=== PATIENT | female | born 1990 | race Caucasian/White ===

== ENCOUNTER 2016-11-04 11:39 | Emergency (ER) | payer OTHER ==
[2016-11-04 11:56] VITALS: BP 124/53; TEMP 103; BMI 32.8
[2016-11-04] MEDS ORDERED: IBUPROFEN 400 MG TABLET (FP) PO ONE ×2 (12:47→12:48)
[2016-11-04] MEDS ORDERED: PENICILLIN G BENZATHINE 1,200,000 UNIT/2 ML PFS IM ONE (12:52)
--- NOTE | 2016-11-04 12:55 | PDOC ---
History of Present Illness - General Chief Complaint: Sore Throat Stated Complaint: FEVER Time Seen by Provider: 11/04/16 12:27 History Source: Patient - History of Present Illness Timing/Duration: reports: yesterday Associated Symptoms: reports: fever/chills, sore throat. denies: cough, earache , facial pain, headache, muscle aches, nasal congestion, nasal drainage Past History - Past Medical History Allergies/Adverse Reactions: Allergies Allergy/AdvReac Type Severity Reaction Status Date / Time No Known Drug Allergies Allergy Verified 11/04/16 11:56 peanuts Allergy Severe Hives Uncoded 11/04/16 11:56 Home Medications: Ambulatory Orders Ibuprofen [Motrin -] 800 mg PO Q6H #30 tablet 11/04/16 Other medical history: PATIENT DENIES MEDICAL HISTORY - Psycho/Social/Smoking Cessation Hx Anxiety: No Suicidal Ideation: No Smoking Status: No Smoking History: Never smoked Have you smoked in the past 12 months: No Number of Cigarettes Smoked Daily: 0 Hx Alcohol Use: Yes (occasionallyt) Drug/Substance Use Hx: No Substance Use Type: None Respiratory Specific PMHX - Complaint Specific PMHX Angina: No Review of Systems - Review of Systems Constitutional: Yes: Fever HEENTM: Yes: Throat Pain. No: Ear Pain Respiratory: No: Cough *Physical Exam - Vital Signs Last Vital Signs Temp Pulse Resp BP Pulse Ox 103.0 F H 115 H 124/53 98 11/04/16 11:40 11/04/16 11:40 11/04/16 11:40 11/04/16 11:40 - Physical Exam General Appearance: Yes: Appropriately Dressed. 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 negative: Scleral Icterus (R), Scleral Icterus (L), Tonsillar Exudate Neck: positive: Supple. 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 States symptoms similar to prior strep. 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 Will treat for presumed strep. Antipyretic in ED and reassess 11/04/16 14:20 Strep +. Pt s/p bicillin. Temp only reduced to 102.8 w/ HR 107 after motrin and tylenol though pt reports feeling significantly better at this time. Will dc w/ instructions to administer antipyretic every 6 hours as needed and maintain adequate hydration. Reasons to return discussed with patient *DC/Admit/Observation/Transfer Diagnosis at time of Disposition: Strep pharyngitis - Discharge Dispostion Disposition: HOME Condition at time of disposition: Improved - Prescriptions Prescriptions: Ibuprofen [Motrin -] 800 mg PO Q6H #30 tablet - Patient Instructions Printed Discharge Instructions: Strep Throat Additional Instructions: Maintain adequate hydration and take Motrin every 6 hours as needed for pain and/or fever. Return to ER for worsening of symptoms - Post Discharge Activity Work/School Note: Back to Work
[2016-11-04] MEDS ORDERED: PENICILLIN G BENZATHINE 2,400,000 UNIT/4 ML PFS ONE (13:04)
[2016-11-04 13:40] VITALS: PULSE 107
== END 2016-11-04 14:34 | disposition home or self-care (01) ==
LOC: JERFT 11:39
DX: J02.0 Streptococcal pharyngitis (principal)
CPT/HCPCS: 87070; 87430; 96372; 99281-25

== ENCOUNTER 2018-02-23 22:45 | Emergency (ER) | payer SELFPAY ==
[2018-02-23 23:02] VITALS: BP 129/81; PULSE 77; TEMP 98.5; BMI 34.0
--- NOTE | 2018-02-23 23:20 | PDOC ---
History of Present Illness - General Chief Complaint: Pain Stated Complaint: ABD PAIN Time Seen by Provider: 02/23/18 23:06 History Source: Patient - History of Present Illness Initial Comments: 02/23/18 23:24 The patient is a 27 year old female with no reported PMH who presents with a 3 day h/o abdominal pain. Pain is epigastric, "sharp" radiates to her L back and exacerbated by eating. Denies any fevers/chills, dysuria/hematuria. Endorses constipation, last BM yesterday. LMP was February 13. States she is not sexually active and denies possibility of . Notes previous h/o similar pain a few weeks previous that wasn't as severe and resolved with rest. Patient notes that she follows a strict no carb diet and drinks apple cider vinegar daily. 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 Patient denies chest pain, shortness of breath, sore throat, cough, numbness, dizziness. NKDA Allergy: peanuts Surgical: denies Social: denies nicotine, social alcohol (3-4 drinks on weekends), denies recreational drugs PMD: Dr. Tushar Aguilera M.D. Past History - Past Medical History Allergies/Adverse Reactions: Allergies Allergy/AdvReac Type Severity Reaction Status Date / Time No Known Drug Allergies Allergy Verified 02/23/18 22:55 peanuts Allergy Severe Hives Uncoded 11/04/16 11:56 Home Medications: Ambulatory Orders Ibuprofen [Motrin -] 800 mg PO Q6H #30 tablet 11/04/16 COPD: No Other medical history: Pt denies - Suicide/Smoking/Psychosocial Hx Smoking Status: No Smoking History: Never smoked Have you smoked in the past 12 months: No Number of Cigarettes Smoked Daily: 0 Information on smoking cessation initiated: No Hx Alcohol Use: No Drug/Substance Use Hx: No Substance Use Type: None Review of Systems - Review of Systems Constitutional: No: Chills, Fever HEENTM: No: Blurred Vision, Double Vision Respiratory: No: Cough, Shortness of Breath Cardiac (ROS): No: Chest Pain, Lightheadedness, Palpitations ABD/GI: Yes: Constipated, Vomiting, Abdominal cramping. No: Diarrhea, Nausea : No: Burning, Dysuria *Physical Exam - Vital Signs Last Vital Signs Temp Pulse Resp BP Pulse Ox 98.5 F 77 18 129/81 98 02/23/18 22:55 02/23/18 22:55 02/23/18 22:55 02/23/18 22:55 02/23/18 22:55 - Physical Exam General Appearance: Yes: Nourished, Obese HEENT: positive: Normal Voice, Hearing Grossly Normal Neck: positive: Trachea midline, Supple Respiratory/Chest: positive: Lungs Clear, Normal Breath Sounds. negative: Labored Respiration, Rapid RR, Crackles, Wheezing Cardiovascular: positive: S1, S2. negative: Edema, JVD Vascular Pulses: Dorsalis-Pedis (R): 2+, Doralis-Pedis (L): 2+ Gastrointestinal/Abdominal: positive: Normal Bowel Sounds, Soft, Tenderness ( epigastric). 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 Afebrile w/other VS unremarkable. Mild TTP in epigastrium, (+) Maravilla's sign, equivocal CVA tenderness. Frontal diagnosis: cholecystitis, viral gastritis, UA/UTI/pyelonephritis, less likely GERD, low clinical suspicion for abdominal pain as anginal equivalent. Will obtain basic labs, lipase, lactic acid, UA/UC, Upreg, as well as GB ultrasound. IV Fluids + Maalox. Reassess. Patient signed out to Dr. Bhatti (Resident) and Dr. Dhillon (Attending) *DC/Admit/Observation/Transfer Diagnosis at time of Disposition: Epigastric abdominal pain - Discharge Dispostion Condition at time of disposition: Stable - Referrals Referrals: Tushar Aguilera MD [Primary Care Provider] - - Patient Instructions Printed Discharge Instructions: DI for Abdominal Pain-Adult Additional Instructions: Please return to the emergency department with any new or worsening symptoms or concerns. Please follow up with your primary care physician within 72 hours. - Post Discharge Activity
[2018-02-23] MEDS ORDERED: MAG HYDROX/AL HYDROX/SIMETH -MYLANTA- ORAL SUSPENSION PO ONE (23:21)
[2018-02-23] MEDS ORDERED: SODIUM CHLORIDE 0.9% 500 ML INFUS.BAG IV ONE (23:21)
--- NOTE | 2018-02-24 00:02 | PDOC ---
Attending Attestation - Resident Resident Name: Mariaa Toica - ED Attending Attestation I have performed the following: I have examined & evaluated the patient, The case was reviewed & discussed with the resident, I agree w/resident's findings & plan, Exceptions are as noted - HPI HPI: 02/23/18 23:56 27 yo female p/w epigastric pain and some nausea -the pain radiating to her upper back -she states she has started drinking apple cider vinegar for weight control -she denies any abdominal surgeries - Physicial Exam PE: 02/24/18 00:02 27 yo female with epigastric pain head ncat neck supple cvs [id number] lungs cta b/l abd soft,mild epigastric tenderness to palpation,no rebound,no lower abdominal tenderness skin warm and dry,no rashes no cva tenderness extremities from,no deformity,no tenderness neuro axox3,ambulatory,no gross focal neuro deficits psych appropriate 02/24/18 00:16 - Medical Decision Making 02/24/18 00:18 differential includes PUD,cholelithiasis, GERD GB US,lipase,comp,preg test 02/24/18 01:42 abdominal US: no gallstones,normal CBD,there was some sludge but otherwise it was a negative study negative preg test US negative cbc no leukocytosis and no anemia
--- NOTE | 2018-02-24 00:09 | PDOC ---
*Physical Exam - Vital Signs Last Vital Signs Temp Pulse Resp BP Pulse Ox 98.5 F 77 18 129/81 98 02/23/18 22:55 02/23/18 22:55 02/23/18 22:55 02/23/18 22:55 02/23/18 22:55 - Physical Exam Comments: 02/24/18 00:03 GENERAL: Awake, alert, and fully oriented, in no acute distress HEAD: No signs of trauma, normocephalic, atraumatic EYES: PERRLA, EOMI, sclera anicteric, conjunctiva clear ENT: Hearing grossly normal, nares patent, oropharynx clear without exudates. Moist mucosa NECK: Normal ROM, supple, no lymphadenopathy, JVD, or masses LUNGS: No distress, speaks full sentences, clear to auscultation bilaterally HEART: Regular rate and rhythm, normal S1 and S2, no murmurs, rubs or gallops, peripheral pulses normal and equal bilaterally. ABDOMEN: + Epigastric ttp. Soft, normoactive bowel sounds. No guarding, no rebound. No masses. Neg CVA ttp. EXTREMITIES : Normal inspection, Normal range of motion, no edema. No clubbing or cyanosis. SKIN: Warm, Dry, normal turgor, no rashes or lesions noted ED Treatment Course - LABORATORY CBC & Chemistry Diagram: 02/24/18 00:20 02/24/18 00:20 Medical Decision Making - Medical Decision Making 02/24/18 00:[address] hand off [address] Dr. To. 27 yo F with no significant pmh who p/w epigastria abdominal pain. VSS, AF, + epigatsirc ttp. Likely gastritis, vs. biliary dz. Low suspicion pancreatitis, colitis, diverticulitis, nephrolithiasis. Pending RUQ U/S, labs, UA, HCG. ED Course: 02/24/18 01:37 RUQ U/S: Biliary sludge with absent evidence of cholecystitis CBC: Unremarkable Patient stable for d/c with return precautions. Advised to f/u with PMD 02/24/18 01:39 UA: Neg 02/24/18 01:39 HCG: Neg *DC/Admit/Observation/Transfer Diagnosis at time of Disposition: Epigastric abdominal pain - Discharge Dispostion Condition at time of disposition: Stable - Referrals Referrals: Tushar Aguilera MD [Primary Care Provider] - - Patient Instructions Printed Discharge Instructions: DI for Abdominal Pain-Adult Additional Instructions: Please return to the emergency department with any new or worsening symptoms or concerns. Please follow up with your primary care physician within 72 hours. - Post Discharge Activity - Attestations Physician Attestion: 02/24/18 00:04 I attest to the information provided in this note.
[2018-02-24] MEDS ORDERED: MAG HYDROX/AL HYDROX/SIMETH 30 ML UNIT-DOSE CUP ONE (00:10)
[2018-02-24 00:47] LABS: URINE APPEARANCE CLOUDY; URINE BILIRUBIN NEGATIVE (<2.0 mg/dL); URINE COLOR YELLOW; URINE GLUCOSE (UA) NEGATIVE (NEGATIVE); URINE KETONE 1+ (NEGATIVE); URINE LEUK ESTERASE NEGATIVE (NEGATIVE); URINE NITRITE NEGATIVE (NEGATIVE); URINE PROTEIN NEGATIVE (NEGATIVE); URINE UROBILINOGEN NEGATIVE mg/dL (0.2-1.0)
[2018-02-24 00:49] LABS: BASO % 0.5 % (0-2.0); EOS % 0.9 % (0-4.5); HEMATOCRIT 36.2 % (32.4-45.2); HEMOGLOBIN 11.9 GM/dL (10.7-15.3); LYMPH % 25.3 % (8-40); MCH 28.9 pg (25.7-33.7); MCHC 32.9 g/dl (32.0-36.0); MEAN CELL VOLUME 87.9 fl (80-96); MEAN PLT VOLUME 9.7 fl (7.5-11.1); MONO % 5.4 % (3.8-10.2); NEUT % 67.9 % (42.8-82.8); PLATELET COUNT 223 K/MM3 (134-434); RBC 4.12 M/mm3 (3.60-5.2); RDW 12.8 % (11.6-15.6); WHITE BLOOD COUNT 8.6 K/mm3 (4.0-10.0)
[2018-02-24 03:04] LABS: BLOOD UREA NITROGEN 16 mg/dL (7-18); CREATININE 0.6 mg/dL (0.55-1.3); GLUCOSE,RANDOM 105 mg/dL (74-106)
[2018-02-24 03:05] LABS: ALBUMIN 3.4 g/dl (3.4-5.0); ALK PHOS 50 U/L (45-117); ANION GAP 6 MMOL/L (8-16); BILIRUBIN,TOTAL 0.3 mg/dL (0.2-1); CALCIUM 8.4 mg/dL (8.5-10.1); CHLORIDE 108 mmol/L (98-107); CO2 28 mmol/L (21-32); LIPASE 123 U/L (73-393); SGOT/AST 42 U/L (15-37); SGPT/ALT 70 U/L (13-61); SODIUM 142 mmol/L (136-145)
[2018-02-24] MEDS ORDERED: RANITIDINE HCL 150 MG TABLET (FP) PO ONE (03:51)
[2018-02-24] MEDS ORDERED: RANITIDINE HCL 150 MG TABLET (FP) ONE (03:53)
[2018-02-24] MEDS ORDERED: SUCRALFATE 1 GM TABLET (FP) ONE (03:54)
== END 2018-02-24 03:08 | disposition home or self-care (01) ==
LOC: JER 22:45
DX: R10.13 Epigastric pain (principal)
CPT/HCPCS: 36415; 76705-TC; 80053; 81003; 83605; 83690; 84703; 85025; 87086; 99283-25

== ENCOUNTER 2018-03-03 23:35 | Emergency (ER) | payer SELFPAY ==
[2018-03-03 23:41] VITALS: BP 138/67; PULSE 74; TEMP 98.1; BMI 34.0
--- NOTE | 2018-03-04 00:14 | PDOC ---
History of Present Illness - General History Source: Patient, Old Records Exam Limitations: No Limitations - History of Present Illness Initial Comments: 03/04/18 00:26 The patient is a 27 year old female, with no significant past medical history, who presents to the ED complaining of abdominal pain, nausea and vomiting. She describes her abdominal pain as localized in the epigastric region, ranging from mild to moderate, without radiation or modifying factors. She notes that she has a acid reflux sensation in her chest and stomach. She notes that she has been taking anti-acids without relieve of her symptoms. She reports that she was in the ED on 02/23/2018 for the same symptoms, an ultrasound was negative and she was discharged home. The patient denies chest pain, shortness of breath, headache and dizziness. Denies fever, chills, diarrhea or constipation. Denies dysuria, frequency, urgency and hematuria. LMP: Current Allergies: None Past surgical history: None reported Social History: Alcohol use. No tobacco or drug use reported <Oh Del Toro - Last Filed: 03/04/18 00:26> <Nathaly Carl - Last Filed: 03/04/18 01:57> - General Chief Complaint: Pain Stated Complaint: ABDOMINAL PAIN Time Seen by Provider: 03/04/18 00:13 Past History <Oh Del Toro - Last Filed: 03/04/18 00:26> - Past Medical History COPD: No - Suicide/Smoking/Psychosocial Hx Smoking Status: No Smoking History: Never smoked Have you smoked in the past 12 months: No Number of Cigarettes Smoked Daily: 0 Hx Alcohol Use: Yes (occasionallyt) Drug/Substance Use Hx: No Substance Use Type: None <Nathaly Carl - Last Filed: 03/04/18 01:57> - Past Medical History Allergies/Adverse Reactions: Allergies Allergy/AdvReac Type Severity Reaction Status Date / Time No Known Drug Allergies Allergy Verified 03/03/18 23:41 peanuts Allergy Severe Hives Uncoded 03/03/18 23:41 Home Medications: Ambulatory Orders Ibuprofen [Motrin -] 800 mg PO Q6H #30 tablet 11/04/16 Famotidine [Pepcid -] 20 mg PO DAILY #30 tablet 02/24/18 Mag Hydrox/Aluminum Hyd/Simeth [Maalox Advanced Suspension] 30 ml PO DAILY PRN # 355 oral.susp 03/04/18 Review of Systems - Review of Systems Able to Perform ROS?: Yes Comments:: 03/04/18 00:27 GENERAL/CONSTITUTIONAL: No fever or chills. No weakness. HEAD, EYES, EARS, NOSE AND THROAT: No change in vision. No ear pain or discharge. No sore throat. GASTROINTESTINAL: (+) Abdominal pain, nausea and vomiting. No diarrhea or constipation. GENITOURINARY: No dysuria, frequency, or change in urination. CARDIOVASCULAR: No chest pain or shortness of breath. RESPIRATORY: No cough, wheezing, or hemoptysis. MUSCULOSKELETAL: No joint or muscle swelling or pain. No neck or back pain. SKIN: No rash NEUROLOGIC: No headache, vertigo, loss of consciousness, or change in strength/ sensation. ENDOCRINE: No increased thirst. No abnormal weight change. HEMATOLOGIC/LYMPHATIC: No anemia, easy bleeding, or history of blood clots. ALLERGIC/IMMUNOLOGIC: No hives or skin allergy. <Oh Del Toro - Last Filed: 03/04/18 00:26> *Physical Exam - Vital Signs Last Vital Signs Temp Pulse Resp BP Pulse Ox 98.1 F 74 18 138/67 99 03/03/18 23:39 03/03/18 23:39 03/03/18 23:39 03/03/18 23:39 03/03/18 23:39 - Physical Exam Comments: 03/04/18 00:27 Constitutional: Awake, alert, oriented. No acute distress. Head: Normocephalic. Atraumatic Eyes: PERRL. EOMI. Conjunctivae are not pale. ENT: Mucous membranes are moist and intact. Posterior pharynx without exudates or erythema. Uvula midline. Neck: Supple. Full ROM. No lymphadenopathy. Cardiovascular: Regular rate. Regular rhythm. S1, S2 regular. Distal pulses are 2+ and symmetric. Pulmonary/Chest: No evidence of respiratory distress. Clear to auscultation bilaterally No wheezing, rales or rhonchi. Abdominal: (+) Epigastric tenderness. Soft and non-distended. No rebound, guarding or rigidity. No organomegaly. No palpable masses. Good bowel sounds. Back: No CVA tenderness. Musculoskeletal: No edema. No cyanosis. No clubbing. Full range of motion in all extremities. Nocalf tenderness. Radial/pedal pulses are intact and 2+ bilaterally Skin: Skin is warm and dry. No petechiae. No purpura. Neurological: Alert and oriented to person, place, and time. Cranial nerves II -XII are grossly intact. Normal speech. Strength is grossly symmetric. No sensory deficits. Psychiatric: Good eye contact. Normal interaction, affect and behavior. <Oh Del Toro - Last Filed: 03/04/18 00:26> - Vital Signs Last Vital Signs Temp Pulse Resp BP Pulse Ox 98.1 F 74 18 138/67 99 03/03/18 23:39 03/03/18 23:39 03/03/18 23:39 03/03/18 23:39 03/03/18 23:39 <Nathaly Carl - Last Filed: 03/04/18 01:57> ED Treatment Course - LABORATORY CBC & Chemistry Diagram: 03/04/18 00:28 03/04/18 00:28 <Nathaly Carl - Last Filed: 03/04/18 01:57> Medical Decision Making - Medical Decision Making 03/04/18 00:23 a/p: 27yo female with epigastric pain and 1 episode of nbnb vomiting -seen in ED 1 week prior and given pepcid -RUQ u/s showed biliary sludge, no stones or acute azra -labs at the time showed mildly elevated LFT -taking pepcid without relief of the pain -pt with epigastric pain that radiates mildly to the back -will repeat labs -will medicate and monitor -suspect gastritis/pud -no acute azra on prior ultrasound, no stones 03/04/18 01:36 pt feeling much better no abd pain however, elevated LFT to ALT of 400 will repeat RUQ ultrasound - last ultrasound showed biliary sludge 03/04/18 01:56 repeat RUQ u/s negative for acute azra biliary sludge without other acute findings normal liver discussed ultrasound imaging results with the patient. discussed labs and elevated LFT discussed need to follow up with Gi answered all quesitons pt is stable for d/c to home <Nathaly Carl - Last Filed: 03/04/18 01:57> *DC/Admit/Observation/Transfer - Attestations Scribe Attestion: 03/04/18 00:27 Documentation prepared by Oh Del Toro, acting as medical administrative technician for Nathaly Carl DO <Oh Del Toro - Last Filed: 03/04/18 00:26> - Discharge Dispostion Decision to Admit order: No - Attestations Physician Attestion: 03/04/18 01:41 I, Dr. Nathaly Carl, DO, attest that this document has been prepared under my direction and personally reviewed by me in its entirety. I further attest, that it accurately reflects all work, treatment, procedures and medical decision -making performed by me. <Nathaly Carl - Last Filed: 03/04/18 01:57> Diagnosis at time of Disposition: Epigastric abdominal pain - Discharge Dispostion Disposition: HOME Condition at time of disposition: Stable - Prescriptions Prescriptions: Mag Hydrox/Aluminum Hyd/Simeth [Maalox Advanced Suspension] 30 ml PO DAILY PRN # 355 oral.susp PRN Reason: Peptic Ulcer - Referrals Referrals: Tushar Aguilera MD [Primary Care Provider] - Smith Schroeder MD [Staff Physician] - - Patient Instructions Printed Discharge Instructions: DI for Epigastric Pain Additional Instructions: Please take all medications as prescribed. Please make an appointment to see the mineral wool insulation supervisor in the next 2-3 days. Please return to the ED with any further concerns or complaints. - Post Discharge Activity Forms/Work/School Notes: Back to Work
[2018-03-04] MEDS ORDERED: LIDOCAINE VISCOUS 2% ORAL/TOP 20 ML UNIT-DOSE CUP MM ONE (00:22)
[2018-03-04] MEDS ORDERED: ONDANSETRON *ODT* 4 MG TABLET SL ONE (00:22)
[2018-03-04] MEDS ORDERED: MAG HYDROX/AL HYDROX/SIMETH 30 ML UNIT-DOSE CUP PO ONE (00:22)
[2018-03-04] MEDS ORDERED: ONDANSETRON *ODT* 4 MG TABLET ONE (00:33)
[2018-03-04] MEDS ORDERED: LIDOCAINE VISCOUS 2% ORAL/TOP 20 ML UNIT-DOSE CUP ONE (00:33)
[2018-03-04] MEDS ORDERED: MAG HYDROX/AL HYDROX/SIMETH 30 ML UNIT-DOSE CUP ONE (00:33)
[2018-03-04 00:58] LABS: BASO % 0.4 % (0-2.0); EOS % 0.6 % (0-4.5); HEMATOCRIT 35.8 % (32.4-45.2); HEMOGLOBIN 11.8 GM/dL (10.7-15.3); LYMPH % 18.6 % (8-40); MCH 28.8 pg (25.7-33.7); MCHC 32.9 g/dl (32.0-36.0); MEAN CELL VOLUME 87.6 fl (80-96); MEAN PLT VOLUME 9.7 fl (7.5-11.1); MONO % 4.6 % (3.8-10.2); NEUT % 75.8 % (42.8-82.8); PLATELET COUNT 210 K/MM3 (134-434); RBC 4.09 M/mm3 (3.60-5.2); RDW 12.9 % (11.6-15.6); WHITE BLOOD COUNT 8.3 K/mm3 (4.0-10.0)
[2018-03-04 01:24] LABS: ALBUMIN 3.7 g/dl (3.4-5.0); ALK PHOS 63 U/L (45-117); ANION GAP 8 MMOL/L (8-16); BILIRUBIN,TOTAL 0.3 mg/dL (0.2-1); BLOOD UREA NITROGEN 16 mg/dL (7-18); CALCIUM 8.9 mg/dL (8.5-10.1); CHLORIDE 108 mmol/L (98-107); CO2 24 mmol/L (21-32); CREATININE 0.7 mg/dL (0.55-1.3); GLUCOSE,RANDOM 113 mg/dL (74-106); LIPASE 156 U/L (73-393); MAGNESIUM 2.2 mg/dL (1.8-2.4); POTASSIUM 4.1 mmol/L (3.5-5.1); SGOT/AST 134 U/L (15-37); SGPT/ALT 403 U/L (13-61); SODIUM 140 mmol/L (136-145); TOT PROT 7.6 g/dl (6.4-8.2)
== END 2018-03-04 02:01 | disposition home or self-care (01) ==
LOC: JER 23:35
DX: R10.13 Epigastric pain (principal)
CPT/HCPCS: 36415; 76705-TC; 80053; 83690; 83735; 84703; 85025; 99284-25; Q0162

== ENCOUNTER 2018-03-07 05:49 | Inpatient (IN) | payer OTHER ==
[2018-03-07 07:06] LABS: BASO % 0.4 % (0-2.0); HEMATOCRIT 37.8 % (32.4-45.2); HEMOGLOBIN 12.5 GM/dL (10.7-15.3); LYMPH % 29.3 % (8-40); MCH 29.2 pg (25.7-33.7); MCHC 33.2 g/dl (32.0-36.0); MEAN CELL VOLUME 88.1 fl (80-96); MEAN PLT VOLUME 9.9 fl (7.5-11.1); MONO % 6.7 % (3.8-10.2); NEUT % 62.6 % (42.8-82.8); PLATELET COUNT 212 K/MM3 (134-434); RBC 4.29 M/mm3 (3.60-5.2); RDW 13.1 % (11.6-15.6); WHITE BLOOD COUNT 7.6 K/mm3 (4.0-10.0)
[2018-03-07 07:15] LABS: URINE APPEARANCE SLCLOUDY; URINE BILIRUBIN NEGATIVE (<2.0 mg/dL); URINE COLOR DKYELLOW; URINE GLUCOSE (UA) NEGATIVE (NEGATIVE); URINE KETONE TRACE (NEGATIVE); URINE LEUK ESTERASE NEGATIVE (NEGATIVE); URINE NITRITE NEGATIVE (NEGATIVE); URINE PROTEIN 1+ (NEGATIVE); URINE UROBILINOGEN NEGATIVE mg/dL (0.2-1.0)
[2018-03-07 07:17] LABS: HCG,QUALITATIVE URINE Negative
[2018-03-07 07:22] LABS: ALBUMIN 3.9 g/dl (3.4-5.0); ALK PHOS 66 U/L (45-117); ANION GAP 7 MMOL/L (8-16); BILIRUBIN,TOTAL 0.3 mg/dL (0.2-1); BLOOD UREA NITROGEN 16 mg/dL (7-18); CALCIUM 8.8 mg/dL (8.5-10.1); CHLORIDE 105 mmol/L (98-107); CO2 27 mmol/L (21-32); CREATININE 0.7 mg/dL (0.55-1.3); GLUCOSE,RANDOM 98 mg/dL (74-106); POTASSIUM 4.1 mmol/L (3.5-5.1); SGOT/AST 167 U/L (15-37); SGPT/ALT 541 U/L (13-61); SODIUM 140 mmol/L (136-145)
[2018-03-07 07:23] LABS: EPI CELLS MODERATE /HPF (FEW); URINE MUCUS MODERATE
--- NOTE | 2018-03-07 07:31 | PDOC ---
History of Present Illness - General Chief Complaint: Pain Stated Complaint: VAGINAL BLEEDING/CRAMPS Time Seen by Provider: 03/07/18 07:13 History Source: Patient Exam Limitations: No Limitations - History of Present Illness Initial Comments: 03/07/18 07:31 27 year old woman with no past medical who presents with RUQ mildly radiating to the back. The patient reports 1 episode of emesis and loose stool this AM. The patient reports that the pain worsens at night. This AM the patient was awakened by the abdominal pain and took Mylanta without relief. The patient has been seen in this ED multiple times this month and had prior abdominal US done that showed biliary sludge but no gallstones. The patient had a follow up appointment in 3 days. She had called them several days ago in concern over her abdominal pain, and they recommended taking Nexium. She took Nexium for 2 days without any improvment of the pain. She also notes that from Mar 02 - she had vaginal spotting. She on OCPs and has regular periods. Her LNMP was Feb 26- . She denies pelvic pain/pressure. She denies chest pain, shortness of breath , constipation or history of STDs. She has no other complaints at bedside. PMHX: as in HPI Meds: see below Allergies: peanuts Tob:none Etoh: none Rec drugs: none PCP: Willy Past History - Past Medical History Allergies/Adverse Reactions: Allergies Allergy/AdvReac Type Severity Reaction Status Date / Time peanut Allergy Verified 03/07/18 07:42 peanuts Allergy Severe Hives Uncoded 03/07/18 06:29 Home Medications: Ambulatory Orders Famotidine [Pepcid -] 20 mg PO DAILY #30 tablet 02/24/18 Mag Hydrox/Aluminum Hyd/Simeth [Maalox Advanced Suspension] 30 ml PO DAILY PRN # 355 oral.susp 03/04/18 oxyCODONE HCL [Roxicodone -] 5 mg PO Q4H PRN #30 tablet MDD 6 03/09/18 COPD: No CHF: No Other medical history: Pt denies - Suicide/Smoking/Psychosocial Hx Smoking Status: No Smoking History: Never smoked Have you smoked in the past 12 months: No Number of Cigarettes Smoked Daily: 0 Information on smoking cessation initiated: No Hx Alcohol Use: No Drug/Substance Use Hx: No Substance Use Type: None Review of Systems - Review of Systems Able to Perform ROS?: Yes Is the patient limited Ukrainian proficient: No Constitutional: No: Chills, Diaphoresis, Fever HEENTM: No: Blurred Vision, Tinnitus Respiratory: No: Cough, Orthopnea, Shortness of Breath Cardiac (ROS): No: Chest Pain, Palpitations, Syncope ABD/GI: Yes: See HPI, Diarrhea, Nausea, Vomiting. No: Constipated : No: Burning, Dysuria, Hematuria Neurological: No: Headache, Numbness, Tingling *Physical Exam - Vital Signs Last Vital Signs Temp Pulse Resp BP Pulse Ox 98.9 F 74 20 142/91 99 03/07/18 06:11 03/07/18 06:11 03/07/18 06:11 03/07/18 06:11 03/07/18 06:11 - Physical Exam Comments: 03/07/18 08:00 GENERAL: Awake, alert, and fully oriented, in no acute distress HEAD: No signs of trauma, normocephalic, atraumatic EYES: EOMI, sclera anicteric, conjunctiva clear ENT: oropharynx clear without exudates. Moist mucosa NECK: Normal ROM, supple, no lymphadenopathy LUNGS: No distress, speaks full sentences, clear to auscultation bilaterally HEART: Regular rate and rhythm, normal S1 and S2, no murmurs, rubs or gallops, peripheral pulses normal and equal bilaterally. ABDOMEN: Soft, + tender to epigastric palpation, normoactive bowel sounds. No guarding, no rebound. No masses EXTREMITIES : Normal inspection, Normal range of motion, no edema. No clubbing or cyanosis. NEUROLOGICAL: Cranial nerves II through XII grossly intact. Normal speech, normal gait, no focal sensorimotor deficits SKIN: Warm, Dry, normal turgor, no rashes or lesions noted PELVIC: closed os, blood in vaginal canal, no CVA tenderness ED Treatment Course - LABORATORY CBC & Chemistry Diagram: 03/08/18 06:00 03/08/18 06:00 - ADDITIONAL ORDERS Additional order review: Laboratory Results 03/07/18 03/07/18 06:18 06:18 Sodium 140 Potassium 4.1 Chloride 105 Carbon Dioxide 27 Anion Gap 7 L BUN 16 Creatinine 0.7 Creat Clearance w eGFR > 60 Random Glucose 98 Calcium 8.8 Total Bilirubin 0.3 AST 167 H ALT 541 H Alkaline Phosphatase 66 Total Protein 8.0 Albumin 3.9 Urine Color Dkyellow Urine Appearance Slcloudy Urine pH 5.0 D Ur Specific [place] 1.032 Urine Protein 1+ H Urine Glucose (UA) Negative Urine Ketones Trace H Urine Blood 3+ H Urine Nitrite Negative Urine Bilirubin Negative Urine Urobilinogen Negative Ur Leukocyte Esterase Negative Urine WBC (Auto) 15 Urine RBC (Auto) <1 Ur Epithelial Cells Moderate Urine Mucus Moderate Urine HCG, Qual Negative 03/07/18 06:18 RBC 4.29 MCV 88.1 MCHC 33.2 RDW 13.1 MPV 9.9 Neutrophils % 62.6 Lymphocytes % 29.3 D Monocytes % 6.7 Eosinophils % 1.0 Basophils % 0.4 Medical Decision Making - Medical Decision Making 03/07/18 09:33 27 year old woman with no past medical who presents with RUQ mildly radiating to the back. The patient reports 1 episode of emesis and loose stool this AM. The patient reports that the pain worsens at night. This AM the patient was awakened by the abdominal pain and took Mylanta without relief. The patient has been seen in this ED multiple times this month and had prior abdominal US done that showed biliary sludge but no gallstones. DDX including but not limited to: cholecystitis vs ectopic vs GERD W/U: - Abd US, TVUS TX: - Tylenol - Pepcid, Maalax - 1L NS ED Course: Patient assessed. stable, resting comfortably. No acute distress. 03/07/18 10:59 Abd US: 1.4cm stone in biliary duct possibly common bile duct. Dr. Godwin contacted, will accept patient. 03/07/18 11:09 Dr. Molina consulted, recommends MRCP and GI consult. Patient admitted to medicine. *DC/Admit/Observation/Transfer Diagnosis at time of Disposition: Cystic duct calculus, Common bile duct calculi - Discharge Dispostion Condition at time of disposition: Stable Decision to Admit order: Yes - Prescriptions - Referrals - Patient Instructions - Post Discharge Activity
[2018-03-07] MEDS ORDERED: MAG HYDROX/AL HYDROX/SIMETH 30 ML UNIT-DOSE CUP PO ONE (07:40)
[2018-03-07] MEDS ORDERED: FAMOTIDINE 20 MG/50 ML IVPB 20 MG/50 ML MG IVPB ONE ×2 (07:40→08:13)
[2018-03-07] MEDS ORDERED: ACETAMINOPHEN 1000 MG/100 ML VIAL (NON FORMULARY) IVPB ONE (07:40)
[2018-03-07] MEDS ORDERED: SODIUM CHLORIDE 1,000 ML IV ONE (07:45)
--- NOTE | 2018-03-07 08:05 | PDOC ---
Attending Attestation - Medical Decision Making 03/07/18 10:[address] Godwin at 10:00 and 10:30. Awaiting call back. Documentation prepared by Sharmin Cabral, acting as mobile paramedical examiner for Lino Staley MD. <Sharmin Cabral - Last Filed: 03/07/18 10:53> - Resident Resident Name: Baylee Rainey - ED Attending Attestation I have performed the following: I have examined & evaluated the patient, The case was reviewed & discussed with the resident, I agree w/resident's findings & plan, Exceptions are as noted - HPI HPI: 03/07/18 07:57 27-year-old female with no past medical history presents with right upper quadrant pain. The patient was recently seen here several days ago for some her symptoms. Noted to have elevated LFTs and bili sludge on ultrasound. Patient was sent home with follow-up with GI. However, patient can't persistent pains with nausea and vomiting. No fevers or chills. States that eating worsens the symptoms. Came to the ER for further evaluation. - Physicial Exam PE: 03/07/18 07:58 GENERAL: Awake, alert, and fully oriented, in no acute distress HEAD: No signs of trauma EYES: EOMI, sclera anicteric, conjunctiva clear ENT: Auricles normal inspection, hearing grossly normal, nares patent,Moist mucosa NECK: Normal ROM, supple ABDOMEN: Soft, No guarding, no rebound. No masses. TTP epigastric and RUQ. EXTREMITIES: Normal range of motion, no edema. No clubbing or cyanosis. No cords, erythema, or tenderness NEUROLOGICAL: Cranial nerves II through XII grossly intact. Normal speech, normal gait SKIN: Warm, Dry, normal turgor, no rashes or lesions noted. - Medical Decision Making 03/07/18 07:59 Vital Signs Temp Pulse Resp BP Pulse Ox 98.9 F 74 20 142/91 99 03/07/18 06:11 03/07/18 06:11 03/07/18 06:11 03/07/18 06:11 03/07/18 06:11 Given patient's age and previous findings, and the elevated LFTs with bili sludge, could this be choledocholithiasis or acute cholecystitis. The patient will likely need an MRCP. Labs, pain control, IV fluids and admitted to the hospital. 03/07/18 10:56 CBC, BMP 03/07/18 06:18 03/07/18 06:18 CMP Sodium 140 mmol/L (136-145) 03/07/18 06:18 Potassium 4.1 mmol/L (3.5-5.1) 03/07/18 06:18 Chloride 105 mmol/L (98-107) 03/07/18 06:18 Carbon Dioxide 27 mmol/L (21-32) 03/07/18 06:18 Anion Gap 7 MMOL/L (8-16) L 03/07/18 06:18 BUN 16 mg/dL (7-18) 03/07/18 06:18 Creatinine 0.7 mg/dL (0.55-1.3) 03/07/18 06:18 Creat Clearance w eGFR > 60 (>60) 03/07/18 06:18 Random Glucose 98 mg/dL (74-106) 03/07/18 06:18 Calcium 8.8 mg/dL (8.5-10.1) 03/07/18 06:18 Total Bilirubin 0.3 mg/dL (0.2-1) 03/07/18 06:18 AST 167 U/L (15-37) H 03/07/18 06:18 ALT 541 U/L (13-61) H 03/07/18 06:18 Alkaline Phosphatase 66 U/L (45-117) 03/07/18 06:18 Total Protein 8.0 g/dl (6.4-8.2) 03/07/18 06:18 Albumin 3.9 g/dl (3.4-5.0) 03/07/18 06:18 Lipase 160 U/L (73-393) 03/07/18 06:18 Ultrasound demonstrates biliary slugding. 1.4 cm possible calculus in the cystic duct. 03/07/18 10:56 Transvaginal ultrasound unremarkable. At this time, will refer patient to OB/ EMPLOYMENT CLERK. I suspect that this is dysfunctional uterine bleeding. Admit for further GI workup. 03/07/18 14:39 MRI shows acute cholecystitis Case discussed with Dr. Grayson. Requests Ceftriaxone, ursodiol and reglan. Orders placed. <Lino Staley - Last Filed: 03/07/18 14:39>
[2018-03-07] MEDS ORDERED: MAG HYDROX/AL HYDROX/SIMETH 30 ML UNIT-DOSE CUP ONE (08:12)
[2018-03-07] MEDS ORDERED: ACETAMINOPHEN INJECTION 100 ML IVPB ONE (08:15)
[2018-03-07 08:59] LABS: LIPASE 160 U/L (73-393)
[2018-03-07] MEDS ORDERED: DEXTROSE 5%-NORMAL SALINE 1,000 ML IV SCH (11:30)
[2018-03-07] MEDS: DEXTROSE 5%-0.45% SALINE 1,000 ML IV SCH (13:06)
[2018-03-07] MEDS ORDERED: CEFTRIAXONE 1,000 MG in DEXTROSE 5%-WATER - 50 ML IVPB ONE (14:37)
[2018-03-07] MEDS ORDERED: METOCLOPRAMIDE HCL INJECTION 10 MG/2 ML VIAL IVPB PRN (14:38)
--- NOTE | 2018-03-07 16:20 | CONSULT ---
Consult Consult Specialty:: Surgery Reason for Consultation:: abdominal pain, r/o acute cholecystitis - History of Present Illness Chief Complaint: RUQ pain History of Present Illness: 27-year-old female with no past medical history presents with epigastric and right upper quadrant pain that started 2 weeks ago as intermittent, radiating to the back with occasional n & v. The patient was recently seen here several days ago x 2 for same symptoms. Noted to have elevated LFTs and bili sludge on ultrasound. Patient was sent home with follow-up with GI. However, patient continued to have persistent pains with nausea and vomiting. No fevers or chills. States that eating worsens the symptoms. Came to the ER for further evaluation. - History Source History Provided By: Patient - Past Medical History Reproductive: Yes: Other (one miscarriage) - Past Surgical History Past Surgical History: Yes: None - Alcohol/Substance Use Hx Alcohol Use: No - Smoking History Smoking history: Never smoked Have you smoked in the past 12 months: No Aproximately how many cigarettes per day: 0 Home Medications - Allergies Allergies/Adverse Reactions: Allergies Allergy/AdvReac Type Severity Reaction Status Date / Time peanut Allergy Verified 03/07/18 07:42 peanuts Allergy Severe Hives Uncoded 03/07/18 06:29 - Home Medications Home Medications: Ambulatory Orders Famotidine [Pepcid -] 20 mg PO DAILY #30 tablet 02/24/18 Mag Hydrox/Aluminum Hyd/Simeth [Maalox Advanced Suspension] 30 ml PO DAILY PRN # 355 oral.susp 03/04/18 Review of Systems - Review of Systems Constitutional: reports: No Symptoms Eyes: reports: No Symptoms HENT: reports: No Symptoms Neck: reports: No Symptoms Cardiovascular: reports: No Symptoms Respiratory: reports: No Symptoms Gastrointestinal: reports: Abdominal Pain (epigastric and RUQ radiating to the back), Nausea, Vomiting Genitourinary: reports: No Symptoms Neurological: reports: No Symptoms Physical Exam Vital Signs: Vital Signs Temperature 98.9 F 03/07/18 13:16 Pulse Rate 78 03/07/18 13:16 Respiratory Rate 16 03/07/18 13:16 Blood Pressure 120/73 03/07/18 13:16 O2 Sat by Pulse Oximetry (%) 100 03/07/18 13:16 Constitutional: Yes: Well Nourished Eyes: Yes: WNL HENT: Yes: Normocephalic Neck: Yes: Supple Cardiovascular: Yes: Regular Rate and Rhythm Respiratory: Yes: CTA Bilaterally Gastrointestinal: Yes: Soft, Abdomen, Obese, Tenderness (RUQ), Tenderness, Epigastrium ...Rectal Exam: Yes: Deferred Edema: No Neurological: Yes: Alert, Oriented Psychiatric: Yes: Alert, Oriented Labs: CBC, BMP 03/07/18 06:18 03/07/18 06:18 Imaging - Results Ultrasound: Report Reviewed, Image Reviewed MRI: Report Reviewed, Image Reviewed Problem List - Problems (1) Acute cholecystitis due to biliary calculus Assessment/Plan: Clinical evidnece of acute persistent process For cholecystectomy in am May have clear liquids IV antibiotics Code(s): K80.00 - CALCULUS OF GALLBLADDER W ACUTE CHOLECYST W/O OBSTRUCTION
[2018-03-07 18:16] VITALS: BMI 33.6
--- NOTE | 2018-03-07 23:29 | HP ---
Admitting History and Physical - Past Surgical History Past Surgical History: Yes: None - Smoking History Smoking history: Never smoked Have you smoked in the past 12 months: No Aproximately how many cigarettes per day: 0 - Alcohol/Substance Use Hx Alcohol Use: No Home Medications - Allergies Allergies/Adverse Reactions: Allergies Allergy/AdvReac Type Severity Reaction Status Date / Time peanut Allergy Verified 03/07/18 07:42 peanuts Allergy Severe Hives Uncoded 03/07/18 06:29 - Home Medications Home Medications: Ambulatory Orders Famotidine [Pepcid -] 20 mg PO DAILY #30 tablet 02/24/18 Mag Hydrox/Aluminum Hyd/Simeth [Maalox Advanced Suspension] 30 ml PO DAILY PRN # 355 oral.susp 03/04/18 Physical Examination Vital Signs: Vital Signs Temperature 98.2 F 03/07/18 17:09 Pulse Rate 72 03/07/18 17:09 Respiratory Rate 20 03/07/18 17:09 Blood Pressure 106/60 03/07/18 17:09 O2 Sat by Pulse Oximetry (%) 100 03/07/18 13:16 Labs: CBC, BMP 03/07/18 06:18 03/07/18 06:18
[2018-03-08] MEDS: URSODIOL 300 MG CAPSULE PO SCH ×2 (00:49→10:54)
[2018-03-08] MEDS: DEXTROSE 5%-0.45% SALINE 1,000 ML IV SCH ×2 (00:50→15:40)
[2018-03-08 07:19] LABS: ALBUMIN 3.2 g/dl (3.4-5.0); ALK PHOS 56 U/L (45-117); ANION GAP 3 MMOL/L (8-16); BILIRUBIN,TOTAL 0.4 mg/dL (0.2-1); BLOOD UREA NITROGEN 6 mg/dL (7-18); CALCIUM 8.8 mg/dL (8.5-10.1); CHLORIDE 111 mmol/L (98-107); CO2 26 mmol/L (21-32); CREATININE 0.6 mg/dL (0.55-1.3); GLUCOSE,RANDOM 99 mg/dL (74-106); POTASSIUM 4.5 mmol/L (3.5-5.1); SGOT/AST 137 U/L (15-37); SGPT/ALT 480 U/L (13-61); SODIUM 140 mmol/L (136-145); TOT PROT 6.4 g/dl (6.4-8.2)
[2018-03-08 07:25] LABS: BASO % 0.6 % (0-2.0); EOS % 2.1 % (0-4.5); HEMATOCRIT 34.5 % (32.4-45.2); HEMOGLOBIN 11.2 GM/dL (10.7-15.3); LYMPH % 44.1 % (8-40); MCH 28.6 pg (25.7-33.7); MCHC 32.4 g/dl (32.0-36.0); MEAN CELL VOLUME 88.3 fl (80-96); MONO % 7.9 % (3.8-10.2); NEUT % 45.3 % (42.8-82.8); PLATELET COUNT 189 K/MM3 (134-434); RBC 3.91 M/mm3 (3.60-5.2); RDW 12.9 % (11.6-15.6); WHITE BLOOD COUNT 5.4 K/mm3 (4.0-10.0)
[2018-03-08] MEDS ORDERED: BUPIVACAINE HCL/PF 0.5% (5MG/ML) 10 ML VIAL ONE (15:41)
[2018-03-08] MEDS ORDERED: PROMETHAZINE HCL 25 MG/1 ML VIAL IVPUSH PRN ×2 (16:52→19:17)
[2018-03-08] MEDS ORDERED: ONDANSETRON 4 MG/2 ML VIAL IVPUSH PRN (16:52)
[2018-03-08] MEDS ORDERED: PROPOFOL 20 ML ONE ×2 (16:58→18:18)
[2018-03-08] MEDS ORDERED: ROCURONIUM BROMIDE 50 MG/5 ML VIAL ONE (16:58)
[2018-03-08] MEDS ORDERED: MIDAZOLAM HCL 2 MG/2 ML SINGLE DOSE VIAL ONE (16:58)
[2018-03-08] MEDS ORDERED: LIDOCAINE HCL/PF 2% SDV 5ML VIAL ONE (16:59)
[2018-03-08] MEDS ORDERED: LACTATED RINGERS SOLUTION 1,000 ML IV SCH ×2 (17:00→19:17)
[2018-03-08] MEDS ORDERED: DEXAMETHASONE SOD PHOSPHATE 4 MG/1 ML VIAL ONE (17:34)
[2018-03-08] MEDS ORDERED: BUPIVACAINE HCL/PF 0.5% (5MG/ML) 10 ML VIAL IJ ONE ×2 (17:43→17:50)
[2018-03-08] MEDS ORDERED: KETOROLAC TROMETHAMINE 30 MG/1 ML VIAL ONE (18:12)
--- NOTE | 2018-03-08 18:41 | PN ---
Progress Note (short form) - Note Progress Note: patients clinical condtion d/w with Dr Molina. 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
[2018-03-08] MEDS ORDERED: GLYCOPYRROLATE 0.2 MG/1 ML VIAL ONE (18:44)
[2018-03-08] MEDS ORDERED: NEOSTIGMINE METHYLSULFATE 0.5 MG/ML - 10 ML MDV ONE (18:44)
[2018-03-08] MEDS ORDERED: DOCUSATE SODIUM 100 MG CAPSULE (FP) PO PRN (18:56)
[2018-03-08] MEDS ORDERED: oxyCODONE HCL 5 MG TABLET PO PRN ×2 (18:59→19:01)
[2018-03-08] MEDS ORDERED: ACETAMINOPHEN 325 MG TABLET (FP) PO PRN ×2 (18:59→19:00)
--- NOTE | 2018-03-08 19:00 | OP ---
Operative Note - Note: Operative Date: 03/08/18 Pre-Operative Diagnosis: Acute cholecystitis Operation: Laparoscopic cholecystectomy Findings: Distended edematous gallbladder with large stone impacted in the neck for GB compressing on CBD Surgeon: Jose Molina Mobile Manager: Neelima Das Anesthesia: General Specimens Removed: GALLBLADDER Estimated Blood Loss (mls): 30 Operative Report Dictated: Yes
--- NOTE | 2018-03-08 19:07 | SURG ---
Surgery Event Operations Manager Note Event Operations Manager: Neelima Das PA-C Date of Service: 03/08/18 Diagnosis: Acute cholecystitis Procedure: Laparoscopic cholecystectomy I was present for the entirety of the operative procedure. For further detail, please refer to operative report. Visit type - Case Type Case Type: ED Admission - Emergency Emergency Visit: Yes ED Registration Date: 03/07/18 Care time: The patient presented to the Emergency Department on the above date and was hospitalized for further evaluation of their emergent condition. - New patient This patient is new to me today: Yes Date on this admission: 03/08/18
[2018-03-08] MEDS ORDERED: METOCLOPRAMIDE HCL INJECTION 10 MG/2 ML VIAL IVPB PRN (19:17)
[2018-03-08] MEDS ORDERED: DEXTROSE 5%-0.45% SALINE 1,000 ML IV SCH (19:17)
[2018-03-08] MEDS ORDERED: URSODIOL 300 MG CAPSULE PO SCH (22:00)
--- NOTE | 2018-03-09 07:54 | PN ---
Progress Note (short form) - Note Progress Note: POD #1 Alert. Doing well. C/o incisional tenderness. Adequate pain control via prn meds. Voiding spontaneously. Tolerating clears. Ambulating unassisted. Denies n/v/f/c, CP, SOB or CRISTOBAL. Last Vital Signs Temp Pulse Resp BP Pulse Ox 98.7 F 77 20 147/72 99 03/09/18 06:37 03/09/18 06:37 03/09/18 06:37 03/09/18 06:37 03/08/18 22:16 Gen: nad Abd: all surgical ports c/d/i. No hematoma LE: soft. NT bilat Problem List - Problems (1) Acute cholecystitis due to biliary calculus Assessment/Plan: POD #1 s/p Lap cholecystectomy Cont oob and ambulate Pain management prn Advanced to regular diet f/u w/ Dr. Molina in 7-10 days --> see dc planning tab for further detail Once tolerates regular diet she can be dc'd home from a surgical standpoint. On behalf of Dr. Molina, thank you for the opportunity to participate in your patient's care. Code(s): K80.00 - CALCULUS OF GALLBLADDER W ACUTE CHOLECYST W/O OBSTRUCTION
--- NOTE | 2018-03-09 07:58 | OP ---
DATE OF OPERATION: 03/08/2018 PROCEDURE: Laparoscopic cholecystectomy. PREOPERATIVE DIAGNOSIS: Acute cholecystitis. POSTOPERATIVE DIAGNOSIS: Acute cholecystitis. SURGEON: Jose Molina MD RF TECHNICIAN: RACHEL Louie ANESTHESIA: General endotracheal. FINDINGS AND PROCEDURE: This is a 27-year-old female who presents with 2-week history of right upper quadrant pain radiating to the back, prompting multiple visits to the emergency department. Two ultrasounds prior to admission showed gallbladder with sludge and no evidence of acute cholecystitis. However, the pain persisted , so, on the day of admission, and a repeat ultrasound this time revealed a distended gallbladder with mildly thickened wilkes and a 1.4-cm gallbladder stone impacted in the neck and possible proximal distal cystic duct. On physical exam, patient has mild right upper quadrant pain and mild Maravilla sign. Patient also had mildly elevated transaminases. An MRCP of the biliary tree revealed normal-size common bile duct and a large stone impacted in the neck and distal cystic duct. So, patient was advised removal of the gallbladder, and consent was obtained after discussing the risks, benefits, and alternatives to the procedure. Patient was brought to the operating room and placed in supine position. General endotracheal anesthesia was administered. The abdomen was prepped and draped in the usual sterile fashion. The peritoneal cavity was entered using the optiview technique via a 5-mm umbilical incision, using a 5-mm 30-degree scope inserted in the 5-mm optical port. Pneumoperitoneum was established. The patient was placed in reverse Trendelenburg, [id number] position. Two 5-mm ports were inserted at the right subcostal margins at the midclavicular and anterior axillary lines. An 11-mm port was inserted in the subxiphoid region. The peritoneal cavity was carefully inspected and was noted to be free of inadvertent injury. The gallbladder was noted to be moderately distended with mildly thickened wall. 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 The infundibulum was noted to be adherent to the pylorus. This was carefully dissected bluntly using the laparoscopic peanut dissector. After the pylorus was from the infundibulum, further dissection using the hook dissector connected to monopolar cautery was done until all the congenital adhesions were taken down. The visceral peritoneum covering the triangle of Calot was scored using the hook dissector, and a window was made behind the cystic artery and between the gallbladder wall and the liver bed to create the critical view of safety. Afterwards, the cystic artery was clipped at 3 points, followed by transection, leaving 2 clips at the cystic artery stump. The cystic duct, which was noted to be shortened, was also carefully dissected using the [place] dissector and clipped at 4 points, followed by transection, leaving 3 clips at the cystic duct stump. Afterwards, the gallbladder was resected from its bed in antegrade fashion after decompressing the bile. This was done using the hook dissector connected to monopolar cautery. The gallbladder was placed in an Endobag and extracted via the subxiphoid incision. The liver bed was again inspected and was noted to be free of active bleeding. The Morison's pouch and the right hepatic gutter as well as the gallbladder bed were irrigated with sterile normal saline and suctioned until the return was clear. After that, the pneumoperitoneum was evacuated, and the ports were removed. The wounds were closed with subcuticular Biosyn 4-0 sutures, reinforced with Dermabond. The patient was successfully extubated and transferred to the postanesthesia care unit in satisfactory condition. Estimated blood loss was about 30 mL. Wound class: Clean/contaminated. Patient was already on Levaquin and Flagyl upon admission. Irvin [id number] MTDD
--- NOTE | 2018-03-09 10:24 | PN ---
Progress Note (short form) - Note Progress Note: POD #1 - s/p laparoscopic cholecystectomy under GA. VSS. Pt. doing well, resting comfortably in bed. No complaints. No apparent anesthetic complications noted. Continue current care.
[2018-03-09 14:01] VITALS: BP 117/60; PULSE 88; TEMP 98.4
[2018-03-09] MEDS ORDERED: PT OWN MED DRAWER 7, Y5N ONE (14:59)
--- NOTE | 2018-03-10 13:50 | PATH ---
Surgical Pathology Report Patient Name: DARRELL POLLOCK Med. Rec. #: [id number] /Age/Gender: 1990 (Age: 27) / F Account: [id number] Location: [facility] MED/SURG Taken: 03/08/2018 Received: 03/09/2018 Reported: 03/10/2018 Physicians: Irvin Jauregui M.D. Specimen(s) Received GALLBLADDER Clinical History Calculus cystic duct Final Diagnosis GALLBLADDER, LAPAROSCOPIC CHOLECYSTECTOMY: CHRONIC CHOLECYSTITIS AND CHOLELITHIASIS. ONE BENIGN PERIDUCTAL LYMPH NODE (0/1). Electronically Signed Talita Ken M.D. Gross Description Received in formalin, labeled "gallbladder," is a 9.3 x 2.5 x 1.8 cm. gallbladder with a 0.2 cm. in length portion of cystic duct attached. There is a 0.9 cm in greatest dimension osei periductal lymph node present. The outer surface is osei-pink with a focal defect and varies from smooth to shaggy. The lumen contains green, tenacious bile as well as a 1.4 cm in greatest dimension yellow-green, ovoid cholelith. The cholelith occludes the cystic duct lumen. The mucosa is green and velvety with focal erosions. The wall of the gallbladder averages 0.2 cm. in thickness. Carpet Sewer sections are submitted in one cassette. /03/09/2018 saudi/03/09/2018
== END 2018-03-09 15:04 | disposition home or self-care (01) | DRG 263 ==
LOC: JER 05:49 → JERBED 12:07 → J8W 15:32
PROVIDERS: ADMIT Internal Medicine; ATTEND Internal Medicine
PROC: 0FT44ZZ Resection of Gallbladder, Percutaneous Endoscopic Approach (ICD-10-PCS; principal; 2018-03-08 11:00)
DX: K80.01 Calculus of gallbladder with acute cholecystitis with obstruction (principal); Z91.010 Allergy to peanuts
CPT/HCPCS: 36415; 74181-TC; 76705-TC; 76830-TC; 80053; 81003; 81015; 83690; 84703; 85025; 86850; 86900; 86901; 88304-TC; 94760; 99283-25; J0131; J7030

== ENCOUNTER 2018-12-07 17:23 | Emergency (ER) | payer OTHER ==
--- NOTE | 2018-12-07 17:33 | PDOC ---
Rapid Medical Evaluation Time Seen by Provider: 12/07/18 17:30 Medical Evaluation: Allergies Allergy/AdvReac Type Severity Reaction Status Date / Time peanut Allergy Verified 03/07/18 07:42 peanuts Allergy Severe Hives Uncoded 03/07/18 06:29 12/07/18 17:30 I have performed a brief in-person evaluation of this patient. The patient presents with a chief complaint of: Lower abd pain this am. Home preg test + last week. No vag bleed, dysuria, n/v/f/c. (s/p 1 spon AB). LMP 10/09 but endorses h/o irreg menses. Pertinent physical exam findings:Stable and in NAD I have ordered the following:T&S/beta/UA/US The patient will proceed to the ED for further evaluation Discharge Disposition - Diagnosis Abdominal pain affecting - Referrals - Patient Instructions - Post Discharge Activity
[2018-12-07 17:34] VITALS: BMI 34.5
--- NOTE | 2018-12-07 18:34 | PDOC ---
History of Present Illness - General Chief Complaint: Pain Stated Complaint: 8 WKS /ABD PAIN Time Seen by Provider: 12/07/18 17:30 History Source: Patient Exam Limitations: No Limitations - History of Present Illness Initial Comments: 28 yo A1 F PMH cholecystectomy last year, currently around 8 weeks (LMP 09/30/2018), p/w intermittent abdominal pain. Had a positive urine last week. Began at 0800 this morning, last a couple of seconds at a time, both RLQ and LLQ 5/10 pain that feels like a pressure. Has not had an episode since around 1200. Specifically denies vaginal bleeding, chest pain, SOB, constipation/diarrhea, N/ V, fevers/chills, dysuria, discharge, or burning while urinating. 12/07/18 18:20 Past History - Past Medical History Allergies/Adverse Reactions: Allergies Allergy/AdvReac Type Severity Reaction Status Date / Time peanut Allergy Verified 12/07/18 17:31 peanuts Allergy Severe Hives Uncoded 12/07/18 17:31 Home Medications: Ambulatory Orders Famotidine [Pepcid -] 20 mg PO DAILY #30 tablet 02/24/18 Mag Hydrox/Aluminum Hyd/Simeth [Maalox Advanced Suspension] 30 ml PO DAILY PRN # 355 oral.susp 03/04/18 oxyCODONE HCL [Roxicodone -] 5 mg PO Q4H PRN #30 tablet MDD 6 03/09/18 COPD: No CHF: No - Immunization History Immunization Up to Date: Yes - Suicide/Smoking/Psychosocial Hx Smoking Status: No Smoking History: Never smoked Have you smoked in the past 12 months: No Number of Cigarettes Smoked Daily: 0 Information on smoking cessation initiated: No Hx Alcohol Use: No Drug/Substance Use Hx: No Substance Use Type: None Review of Systems - Review of Systems Able to Perform ROS?: Yes Constitutional: No: Chills, Diaphoresis, Fever HEENTM: No: Eye Pain, Blurred Vision, Recent change in vision, Double Vision, Ear Discharge, Nose Pain, Nose Congestion, Tinnitus, Nose Bleeding, Hearing Loss , Throat Pain, Throat Swelling, Mouth Pain, Difficulty Swallowing Respiratory: No: Cough, Orthopnea, Shortness of Breath Cardiac (ROS): No: Chest Pain, Edema, Irregular Heart Rate, Lightheadedness, Palpitations ABD/GI: No: Constipated, Diarrhea, Nausea, Vomiting : No: Burning, Dysuria, Discharge, Frequency Neurological: No: Headache, Numbness, Paresthesia, Pre-Existing Deficit, Seizure , Tingling, Tremors, Weakness *Physical Exam - Vital Signs Last Vital Signs Temp Pulse Resp BP Pulse Ox 99.2 F 101 H 16 134/70 98 12/07/18 17:31 12/07/18 17:31 12/07/18 17:31 12/07/18 17:31 12/07/18 17:31 - Physical Exam General Appearance: Yes: Nourished, Appropriately Dressed. No: Apparent Distress HEENT: positive: EOMI, SARA, Normal ENT Inspection, Normal Voice, Symmetrical, Pharynx Normal Neck: positive: Trachea midline, Normal Thyroid, Supple. negative: Tender Respiratory/Chest: positive: Lungs Clear, Normal Breath Sounds. negative: Chest Tender, Respiratory Distress, Accessory Muscle Use Cardiovascular: positive: Regular Rhythm, Regular Rate Gastrointestinal/Abdominal: positive: Normal Bowel Sounds, Soft. negative: Tender Musculoskeletal: negative: CVA Tenderness Neurologic: positive: template inspector II-XII NML intact, Fully Oriented, Alert, Normal Mood/ Affect, Normal Response, Motor Strength 5/5 Medical Decision Making - Medical Decision Making TVUS reviewed. Single nonviable intrauterine gestation noted, measuring 2.3 cm, corresponding to about 9 weeks gestation. No cardiac activity noted, consistent with demise. 12/07/18 18:35 Pelvic exam performed. Milky fluid, cervical os closed. 12/07/18 19:28 *DC/Admit/Observation/Transfer Diagnosis at time of Disposition: Abdominal pain affecting , Spontaneous - Discharge Dispostion Disposition: HOME Condition at time of disposition: Good - Referrals Referrals: Tushar Aguilera MD [Primary Care Provider] - - Patient Instructions Additional Instructions: Please follow up with your OBGYN on Thursday. Please have them follow your serum hCG. - Post Discharge Activity
--- NOTE | 2018-12-07 19:00 | PDOC ---
Attending Attestation - Resident Resident Name: Isra Hand - ED Attending Attestation I have performed the following: I have examined & evaluated the patient, The case was reviewed & discussed with the resident, I agree w/resident's findings & plan, Exceptions are as noted - HPI HPI: 12/07/18 19:00 28 yo female who states she has had a positive test and now has pelvic pain but no vaginal bleeding LMP 09/30/18
[2018-12-07 19:33] LABS: PH,URINE 6.5 (5.0-8.0); URINE APPEARANCE CLEAR; URINE BILIRUBIN NEGATIVE (NEGATIVE); URINE COLOR YELLOW; URINE GLUCOSE (UA) NEGATIVE (NEGATIVE); URINE KETONE NEGATIVE (NEGATIVE); URINE LEUK ESTERASE NEGATIVE (NEGATIVE); URINE NITRITE NEGATIVE (NEGATIVE); URINE PROTEIN NEGATIVE (NEGATIVE)
--- NOTE | 2018-12-07 19:53 | PDOC ---
Documentation entered by Lino Penny SCRIBE, acting as scribe for Hallie Dhillon MD. Hallie Dhillon MD: This documentation has been prepared by the Zohaib lambert Joel, SCRIBE, under my direction and personally reviewed by me in its entirety. I confirm that the documentation accurately reflects all work, treatment, procedures, and medical decision making performed by me. Attending Attestation - Resident Resident Name: Isra Hand - ED Attending Attestation I have performed the following: I have examined & evaluated the patient, The case was reviewed & discussed with the resident, I agree w/resident's findings & plan, Exceptions are as noted - HPI HPI: 12/07/18 19:44 The patient is a 28 year old A1 female who is 8 weeks (LMP 09/30/18) with a significant PMH of cholecystectomy who presents to the emergency department for evaluation of intermittent suprapubic abdominal discomfort since this morning. She states her last episode of abdominal pain was about 7 hours ago. The patient denies vaginal bleeding or discharge. The patient denies chest pain, shortness of breath, headache, and dizziness. Denies fevers, chills, nausea, vomit, diarrhea, and constipation. Denies dysuria, frequency, urgency, and hematuria. Allergies: Peanuts Past surgical history: Cholecystectomy. Social history: No reported cigarette, alcohol, or drug use. PCP: Dr. Tushar Aguilera - Physicial Exam PE: 12/07/18 19:45 GENERAL: Awake, alert, and fully oriented, in no acute distress HEAD: No signs of trauma EYES: PERRLA, EOMI, sclera anicteric, conjunctiva clear ENT: Auricles normal inspection, hearing grossly normal, nares patent, oropharynx clear without exudates. Moist mucosa NECK: Normal ROM, supple, no lymphadenopathy, JVD, or masses LUNGS: Breath sounds equal, clear to auscultation bilaterally. No wheezes, and no crackles HEART: Regular rate and rhythm, normal S1 and S2, no murmurs, rubs or gallops ABDOMEN: Protuberant belly. Soft, nontender, normoactive bowel sounds. No guarding, no rebound. No masses PELVIC: Os closed. No blood in vault. No Bartholin cyst. No vesicles. EXTREMITIES: Normal range of motion, no edema. No clubbing or cyanosis. No cords, erythema, or tenderness NEUROLOGICAL: Cranial nerves II through XII grossly intact. Normal speech, normal gait SKIN: Warm, Dry, normal turgor, no rashes or lesions noted. - Medical Decision Making 12/07/18 19:50 28-year-old female with positive tests, presents with low pelvic discomfort. Pelvic exam shows os is closed. There is no blood in the vaginal vault transvaginal ultrasound shows a gestational sac of 9 weeks with no heart tones consistent with demise. Patient was instructed to follow-up with SUPPLY CHAIN ANALYST. She already has an appointment at [facility] on Thursday with SUPPLY CHAIN ANALYST 12/07/18 20:02 [facility] [place],000 imp demise plan salt lifter follow up 12/07/18 20:11
[2018-12-07 20:09] VITALS: BP 130/70; PULSE 90; TEMP 98.3
== END 2018-12-07 20:46 | disposition home or self-care (01) ==
LOC: JER 17:23
DX: O26.891 Other specified pregnancy related conditions, first trimester (principal); O02.1 Missed abortion; Z3A.09 9 weeks gestation of pregnancy
CPT/HCPCS: 36415; 76817-TC; 81003; 84702; 84703; 99283-25